=== PATIENT | female | born 2000 | race Caucasian/White ===

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

== ENCOUNTER 2022-03-04 11:45 | Outpatient (REF) | payer BC, SELFPAY ==
[2022-03-04 17:13] LABS: Bilirubin Negative (Negative); Blood Trace-lysed (Negative); Clarity Clear (Clear); Glucose Negative (Negative); Ketones Negative (Negative); Leukocyte Esterase Moderate (Negative); Nitrite Negative (Negative); Specific Gravity 1.015 (1.005-1.025); Urobilinogen 0.2 EU/dL (Up TO 0.2)
[2022-03-04 17:19] LABS: Bacteria Rare HPF (Negative); Crystals Negative HPF (Negative); Epithelial Cells Few HPF (Negative); Mucus Trace (Negative)
[2022-03-04 17:20] LABS: C & S Indicated? C&S Done As Ordered
== END 2022-03-04 11:46 | disposition home or self-care (01) ==
LOC: NCHCN 11:45
PROVIDERS: PCP Physician Assistant Medical; Visit Provider Physician Assistant Medical
DX: N39.0 Urinary tract infection, site not specified (principal)
CPT/HCPCS: 81003; 81015; 87086

== ENCOUNTER 2022-09-20 11:11 | Outpatient (REF) | payer OTHER, SELFPAY ==
[2022-09-20 15:06] LABS: Abs Immature Grans 0.01 10^3/uL (0.0-0.06); Absolute Basophil Count 0.06 10^3/uL (0.0-0.2); Absolute Lymphocyte Count 2.22 10^3/uL (1.2-3.4); Absolute Monocyte Count 0.46 10^3/uL (0.1-0.8); Absolute Neutrophil Count 4.18 10^3/uL (1.2-6.7); Basophils % 0.9; Eosinophils % 1.4; HCT 39.5 % (36.0-46.0); HGB 12.8 g/dL (11.2-15.7); Immature Grans % 0.1; Lymphocytes % 31.6; MCH 28.8 pg (27.0-33.0); MCHC 32.4 % (32.0-36.0); MCV 89 fL (80-95); MPV 10.8 fL (8.0-11.0); Monocytes % 6.5; Neutrophils % 59.5; Platelet Count 280 10^3/uL (130-400); RBC 4.44 10^6/uL (3.93-5.22); RDW 11.9 % (11.7-14.6); RDW-SD 37.6 fL; WBC 7.03 10^3/uL (4.4-10.8)
[2022-09-20 15:36] LABS: Hemoglobin A1C 5.6 % (<5.7)
[2022-09-20 15:49] LABS: Anion Gap 7.4 mmol/L (3-11); BUN 20 mg/dL (7-18); CO2 28.6 mmol/L (21.0-32.0); CREATININE 0.8 mg/dL (0.55-1.02); Calcium 9.2 mg/dL (8.5-10.1); Calculated LDL 69 mg/dL (<100); Chloride 104 mmol/L (98-107); Cholesterol 154 mg/dL (<200); Estimated GFR 108.11 (mL/min/1.73m2); Glucose 112 mg/dL (74-106); HDL Cholesterol 72 mg/dL (40-60); Potassium 4.2 mmol/L (3.5-5.1); Sodium 140 mmol/L (136-145); TSH (W/Ref FT4) 1.41 uIU/mL (0.36-3.74); Triglyceride 67 mg/dL (<150)
[2022-09-20 22:53] LABS: FSH 3.5 mIU/mL (See Note); LH 4.6 mIU/mL (See Note)
[2022-09-27 11:50] LABS: Testosterone, Free 0.52 ng/dL (<0.13-1.08); Testosterone, Total 24 ng/dL (8-60)
== END 2022-09-20 11:12 | disposition home or self-care (01) ==
LOC: NCHCN 11:11
PROVIDERS: PCP Physician Assistant Medical; Visit Provider Registered Nurse
DX: F32.89 Other specified depressive episodes (principal); F41.8 Other specified anxiety disorders; N92.5 Other specified irregular menstruation; F39 Unspecified mood [affective] disorder; R79.89 Other specified abnormal findings of blood chemistry; E55.9 Vitamin D deficiency, unspecified
CPT/HCPCS: 80048; 80061; 82306; 84402; 84403; 83001; 83002; 83036; 84443; 85025

== ENCOUNTER 2023-02-22 08:12 | Emergency (ER) | payer OTHER, SELFPAY ==
--- NOTE | 2023-02-22 08:13 | W.ED.GENAD ---
Discharge Plan Disposition Patient Disposition: Home Discharge Details Clinical Impression: Passive suicidal ideations Primary Care Provider: Tl Butcher ED Provider: Steve Camacho Home Meds and New Rx's Prescriptions: New escitalopram oxalate 20 mg tablet 20 mg PO DAILY Qty: 30 0RF aripiprazole 10 mg tablet 10 mg PO DAILY Qty: 30 0RF Continued escitalopram oxalate [Lexapro] 20 mg tablet 20 mg PO DAILY Zafemy 150-35 mcg/24 hr patch weekly 1 patch transdermal 7XD lamotrigine 100 mg tablet 100 mg PO DAILY Patient Comments: TAKE ONE TABLET BY MOUTH EVERY DAY aripiprazole 10 mg tablet 10 mg PO DAILY Patient Comments: TAKE ONE TABLET BY MOUTH EVERY NIGHT cholecalciferol (vitamin D3) [Vitamin D3] 50 mcg (2,000 unit) Capsule 50 mcg PO DAILY Discharge Instructions Instructions: Depression (ED) Additional Instructions: You are seen in the emergency department for your depression. [facility] human services advised that you continue your home medications. A prescription has been sent to the [email or web address] in [place]. Please return to the emergency department if you do not feel safe at home. Medical Decision Making This is an overall very well-appearing normothermic and not tachycardic 22-year-old female with bipolar disorder and worsening depression in the setting of her recent stressors with passive suicidal ideation for which she will undergo crisis evaluation with an [facility] emotion[facility] services. No nuchal rigidity to suggest meningitis. Furthermore no fevers. No auditory nor visual hallucinations to suggest schizophrenia. No pressured speech to suggest mary. No dysuria nor frequency to suggest UTI. No chest pain or shortness of breath to suggest PE. We will continue to monitor the patient in the ED. She is cooperative and calm however will place patient on constant observation and provide her with a safety tray as needed. Will obtain updated medication list and reorder home meds. Patient reports taking her meds last night. 8:50 AM Yun from [facility] emotion[facility]me services will assess the patient reportedly at 9:30 AM. I have reordered the patient's home meds. 10:40 AM Yun has evaluated the patient and determined that she is appropriate for discharge with outpatient follow-up and the safety plan which she has provided to the patient. I met with the patient and her mother and they both feel comfortable with this plan. We will proceed with empiric trial of expectant outpatient management. Yun reported that the patient should be prescribed her aripiprazole escitalopram which I will prescribe. SMART medical clearance (if all five of the following are answered ``no?? then the patient is considered medically cleared and no testing is indicated): Suspect new onset psychiatric condition or features? [No] Medical conditions that require screening? [No] Diabetes (FSBS less than 60 or greater the 250) Possibility of (age 12 - 50) Other complaints that require screening Abnormal: [No] Vital signs? Temp: greater than 38.0 degrees C (100.4 degrees F) HR: less than 50 or greater than 110 BP: less than 100 systolic or greater than 180/110 (2 consecutive readings 10 min apart) RR: less than 8 or greater than 22 O2 sat: less than 95 % on room air Mental status? Cannot answer name, month/year and location (minimum A/Ox 3) If clinically intoxicated, HII score 4 or more? Physical Exam (unclothed)? Risky presentation? [No] Age less than 12 or greater than 55 Possibility of ingestion (screen all suicidal patients) Eating disorders Potential for alcohol withdrawal (daily use > or equal to 2 weeks) Ill appearing, significant injury, prolonged struggle or ``found down?? Therapeutic levels needed? [No] Phenytoin, Valproic Acid, [place], Digoxin, Warfarin, Carbamazepine HPI General Date/Time Provider Initiated Documentation: 02/22/23 08:13. HPI Narrative: This is a 23-year-old female up-to-date with immunizations arrived via private vehicle with her mother in the setting of suicidal ideation. Patient reportedly last took her medications last night. Patient and her mother are not certain as to which medications she takes. She recently underwent a break-up and does not like her current job. She has never been hospitalized. She denies homicidal ideation. No recent falls. No dysuria frequency chest pain or shortness of breath. No neck pain or stiffness. No confusion. Related Data Home Medications Medication Instructions Recorded Confirmed escitalopram oxalate 20 mg tablet 20 mg PO DAILY 11/01/21 02/22/23 (Lexapro) aripiprazole 10 mg tablet 10 mg PO DAILY 02/22/23 02/22/23 aripiprazole 10 mg tablet 10 mg PO DAILY #30 tabs 02/22/23 cholecalciferol (vitamin D3) 50 50 mcg PO DAILY 02/22/23 02/22/23 mcg (2,000 unit) capsule (Vitamin D3) escitalopram oxalate 20 mg tablet 20 mg PO DAILY #30 tabs 02/22/23 lamotrigine 100 mg tablet 100 mg PO DAILY 02/22/23 02/22/23 norelgestromin 150 mcg-e.estradiol 1 patch transdermal 7XD 02/22/23 02/22/23 35 mcg/24 hr weekly transderm patch (Zafemy) Previous Rx's Medication Instructions Recorded aripiprazole 10 mg tablet 10 mg PO DAILY #30 tabs 02/22/23 escitalopram oxalate 20 mg tablet 20 mg PO DAILY #30 tabs 02/22/23 Allergies Allergy/AdvReac Type Severity Reaction Status Date / Time No Known Allergies Allergy Unverified 02/22/23 08:48 PFSH All Active Problems (Updated 02/22/23 @ 08:37 by Steve Camacho MD) Passive suicidal ideations (Acute) Medical History (Updated 02/22/23 @ 08:37 by Steve Camacho MD) Anxiety COVID-19 Menstrual irregularity Pelvic pain Tonsillolith Social History (Updated 11/01/21 @ 08:54 by Mary Guerra) Smoking/Tobacco Use Status: Never Smoking risk assessment performed?: Yes Drug use: Never Substance use type: does not use Housing: house Do you feel safe at home: Yes Do you feel safe in your relationship?: Yes Exam Narrative Exam Narrative: General: Well-appearing in no acute distress speaking in complete sentences. Head: Normocephalic, atraumatic. Eye: Extraocular eye movements intact. No conjunctival injection. No scleral icterus. Ear, nose, mouth, throat: Grossly normal inspection. Normal voice, handling secretions normally. Neck: Trachea midline. Cardiovascular: Well-perfused distal extremities. Respiratory: Nonlabored respiration. Gastrointestinal: Nondistended abdomen. Musculoskeletal: No edema. Moving all 4 extremities spontaneously. Skin: Normal for age and race, grossly normal temperature and turgor. No acute rash. Neurologic: Alert and appropriate, no apparent acute deficits. Psychiatric: Mood and manner are appropriate. Grooming and personal hygiene are appropriate. No pressured speech. No flight of ideas. Endorses suicidal but not homicidal ideation.
[2023-02-22 08:14] VITALS: BP 111/71; PULSE 84; RESP 18; TEMP 37; O2SAT 100
--- NOTE | 2023-02-23 10:19 | PDOC.MHCN_ITS ---
Date of service: 02/22/23 Time of Service: 09:59 PHQ-9 Over the last 2 weeks, how often have you been bothered by any of the following problems? 1. Little interest or pleasure in doing things: nearly every day 2. Feeling down, depressed, or hopeless: several days 3. Trouble falling or staying asleep, or sleeping too much: several days 4. Feeling tired or having little energy: several days 5. Poor appetite or overeating: several days 6. Feeling bad about yourself - or that you are a failure or have let yourself and your family down: several days 7. Trouble concentrating on things, such as reading the newspaper or watching television: nearly every day 8. Moving or speaking so slowly that other people could have noticed? - Or the opposite - being so fidgety or restless that you have been moving around a lot more than usual: not at all 9. Thoughts that you would be better off or of hurting yourself in some way: several days Total score: 12 If you checked off any problems, how difficult have these problems made it for you to do your work, take care of things at home, or get along with other people?: somewhat difficult PHQ-9 Results: Positive Source: Developed by Drs. Juan Lott, Lila Park, Mo Martinez and colleagues, with an educational ritu from [employer]. Suicide Severity Rate CSSRS Have you wished you were or wished you could go to sleep and not wake up?: Yes Have you actually had any thoughts of killing yourself?: Yes CSSRS2 Have you been thinking about how you might do this?: Yes Have you had these thoughts and had some intention of acting on them?: No Have you started to work out or worked out the details of how to kill yourself? Do you intend to carry out this plan?: No CSSRS3 Have you ever done anything, started to do anything or prepared to do anything to end your life?: Yes CSSRS4 Was this within the past three months?: No Screening Score Total Score: 6 Screening: Positive Mental Health Emergency Note Release [facility] release signed:: Yes Reason for Visit Client is known to [facility] as is she recently is getting established with services through adult outpatient for medication management with Ivette Block. Client presents to [facility] ED this morning for chief complaint of increased depression and anxiety with fleeting suicidal ideations. Client states: I feel like I am having a mental breakdown and am helpless and hopeless. This jingle writer meets with the client in person at [facility] ED. In the last 2 weeks has the pt presented for ES prior to today?: No Client Information Client is: Adult Outpatient Well Housed: Yes Non Suicidal Self Injury Current: No History: yes, Hx of NSSI via cutting on forearms Safety Risk/Harm to Self or Others Current Ideation to Harm Self or Others: Yes to self. (Client reports fleeting SI, however denies intent and plan. ) Intent: no, has no intent. Plan: no.does not have a plan. History of suicide attempt: No history of suicide attempt reported Risk: Does risk to harm exist?: yes. Access to means: No. Risk: Low Risk Duty to warn indicated: No Asssessment/Mental Status Appearance: Disheveled Attitude: Cooperative Behavior: Unremarkable Speech: Normal Affect: Flat and Cogruent with mood Mood: Depressed Thought process: Unremarkable Hallucinations: No Delusions: No Attention: Unremarkable Perception: Not impaired Orientation: Fully orientated Memory: Intact Insight: Fair Judgement: Fair Neurovegetative Symptoms Sleep: Decrease Appetitie: Decrease Interests: Decrease Energy: Decrease Libido: Not applicable Substance Use: Do you use nicotine?: No Have you used substances in the last 7 days?: No Additional Issues: Assaultive/Threatening Behavior: No Medical Concerns: No Client engaged in active self harm w/weapon: No Threatening to run away: No Child reported abuse/neglect: No Voluntarily presenting for services: Yes Domestic violence is a concern: No Extreme Psychosis or extreme behavior is present: No Impression Client is a 23 y/o single female that lives in [place], [place] with her parents. Per the clients report she is employed [employer] by [employer]. This jingle writer meets with the client in person at [facility] ED. The client reports that her mom brought her to the emergency room this morning as she felt helpless, hopeless and was shaking and crying uncontrollably. Client presents with symptoms most congruent with major depressive disorder as evidenced by self- report, loss of appetite and sleep, and lack of energy. Client reports recent life stressors stating that she broke up with her boyfriend and is unhappy with her current employment. Client reports that she has fleeting suicidal ideations with plan to overdose on her medications, however rates her intent a 0/10. Client would benefit from outpatient treatment including therapy. Client reports that she has not found therapy to be helpful in the past, but is willing to have a referral for therapy, which this jingle writer will complete. Client would also b enefit from sooner appointment with medication provider. Resources Reos[facility]ces reviewed and given:: [facility] and [facility] Plan/Disposition Recommended Disposition: [facility] Services [facility] Services: Therapy, Therapy and Med management. Plan: Client does not meet criteria for inpatient treatment at this time. Client will be discharged home on pro-active safety plan. Client is agreeable to a referral for therapy, which this jingle writer will complete. Client will complete check-in phone calls daily between 1p and 3p until 02/26. Client is provided with [address] [place] crisis text line to utilize as additional resource if needed as well outside of check-in phone calls. Person reported agreement to plan: Yes Reports/communication Outcome discussed with: ED/Personnel (Verbal passover given to charge nurse Cate and attending provider Dr. Camacho)
== END 2023-02-22 11:19 | disposition home or self-care (01) ==
PROVIDERS: Emergency Provider Emergency Medicine; PCP Physician Assistant Medical
DX: F32.A Depression, unspecified (principal); F31.9 Bipolar disorder, unspecified; R45.851 Suicidal ideations
CPT/HCPCS: 99285